=== PATIENT | male | born 1940 | race Caucasian/White ===

== ENCOUNTER 2017-06-20 13:17 | Emergency (ER) | payer MEDICARE, OTHER ==
--- NOTE | 2017-06-20 13:57 | ERPHSYRPT ---
- History of Present Illness Time Seen by Provider: 06/20/17 13:44 Source: patient Patient Subjective Stated Complaint: PT REPORTS MILD HEADACHE FOR THE LAST FEW DAYS-STATES THAT HE WENT TO WALK OUT THE DOOR WHEN THINGS STARTED TURNING BLACK- PT MADE IT TO THE COUGH ET SAT DOWN-STATED VISION CONTINUED TO TURN BLACK- DENIES LOSS OF AWARENESS-DENIES PAIN OTHER THAN HEADACHE WHICH DID NOT CHANGE- DENIES NUMBNESS OR TINLGING-DENIES CONFUSION-DENIES N/V-PT REPORTS HE TOOK HIS BLOOD SUGAR AT HOME IT WAS 182 Triage Nursing Assessment: PT PINK WARM ET DRY-AMBULATORY WITH NO DIFFICULTY- ALERT-ANSWERING ALL QUESTIONS CORRECTLY-FOLLOWING ALL COMMANDS-NO FACIAL DROOP OR SLURRED SPEECH NOTED-PUPILS REACTIVE-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 He's had a headache for 2 days. He was beginning to walk out of the door when his vision started to become dark. He sat down his vision still continued to be dark. He did not lose consciousness. His stated he was pale and sweaty. He denies nausea or shortness of breath. He denies chest pain. He took 2 Tylenol and his headache has not improved. He feels better now. His past medical history is significant for coronary artery disease, cardiac stent placement 2, hypertension, high cholesterol, diabetes, and mild anxiety. Witnessed: by family Prior Episodes: single episode today, no prior history Timing/Duration: today Precipitating Factors: none Context: sitting, standing Loss of Consciousness: no loss of consciousness Charcter of event(s): felt faint Allergies/Adverse Reactions: erythromycin base [Erythromycin Base] Allergy (Verified 06/20/17 13:32) Itching Home Medications: Aspirin 81 gm Chew [Baby Aspirin 81 mg Chew] 81 mg PO DAILY 07/24/13 [ History] Atenolol 25 mg PO DAILY 07/24/13 [History] [place]-3/Dha/Epa/Fish Oil [Fish Oil] 1 cap PO DAILY 07/24/13 [History] Simvastatin 10 mg [Zocor 10MG] 20 mg PO DAILY 07/24/13 [History] Clopidogrel Bisulfate 75 mg [PLAVIX 75 MG Tablet] 75 mg PO DAILY 06/20/17 [History] Clorazepate Dipotassium [Tranxene T-Tab] 7.5 mg PO BID 06/20/17 [History] Isosorbide Mononitrate 60 mg [Imdur 60MG] 60 mg PO DAILY 06/20/17 [History] Lisinopril 5 mg [Zestril 5 MG] 2.5 mg PO DAILY 06/20/17 [History] Metformin HCl 500 mg [Glucophage 500 MG] 500 mg PO BID 06/20/17 [History] Sertraline HCl [Zoloft] 25 mg PO BID 06/20/17 [History] Zolpidem Tartrate [Ambien] 10 mg PO HS 06/20/17 [History] Hx Tetanus, Diphtheria Vaccination/Date Given: No Hx Influenza Vaccination/Date Given: Yes Hx Pneumococcal Vaccination/Date Given: Yes Immunizations Up to Date: Yes - Past Medical History Pertinent Past Medical History: Yes Cardiac History: Coronary Artery Disease, Myocardial Infarction ([place]) Endocrine Medical History: Diabetes Type II - Past Surgical History Past Surgical History: Yes Cardiac: Cardiac Stent Musculoskeletal: Other - Social History Smoking Status: Never smoker Exposure to second hand smoke: No Drug Use: none Patient Lives Alone: No - Review of Systems Constitutional: No Fever, No Chills Eyes: No Symptoms Ears, Nose, & Throat: No Symptoms Respiratory: No Cough, No Dyspnea Cardiac: No Chest Pain, No Edema, No Syncope Abdominal/Gastrointestinal: No Abdominal Pain, No Nausea, No Vomiting, No Diarrhea Genitourinary Symptoms: No Dysuria Musculoskeletal: No Back Pain, No Neck Pain Skin: No Rash Neurological: Headache, No Dizziness, No Focal Weakness, No Sensory Changes Psychological: No Symptoms Endocrine: No Symptoms Hematologic/Lymphatic: No Symptoms Immunological/Allergic: No Symptoms All Other Systems: Reviewed and Negative Physical Exam - Nursing Vital Signs Nursing Vital Signs: Initial Vital Signs Temperature 98.5 F 06/20/17 13:23 Pulse Rate 57 L 06/20/17 13:23 Respiratory Rate 18 06/20/17 13:23 Blood Pressure 138/63 06/20/17 13:23 O2 Sat by Pulse Oximetry 100 06/20/17 13:23 Pain Scale Pain Intensity 0 - Adonis Coma Scale Best Eye Response ([place]): (4) open spontaneously Best Verbal Response (Adonis): (5) oriented Best Motor Response (Adonis): (6) obeys commands Adonis Total: 15 - Physical Exam General Appearance: no apparent distress, alert Eye Exam: bilateral eye: normal inspection Ears, Nose, Throat Exam: normal ENT inspection, pharynx normal, moist mucous membranes Neck Exam: normal inspection, non-tender, supple, full range of motion Respiratory: normal breath sounds, lungs clear, No chest tenderness, No respiratory distress Cardiovascular: regular rate/rhythm, capillary refill <2 sec, No murmur, No pulse deficit Gastrointestinal: soft, No tenderness, No distention, No mass Rectal Exam: not done Back Exam: normal inspection, normal range of motion, No CVA tenderness, No vertebral tenderness Extremity Exam: normal inspection, normal range of motion, pelvis stable, No tenderness Mental Status: alert, oriented x 3, 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 Exam: normal speech, PERRL, No facial droop Coordination/Gait: normal finger to nose Motor/Sensory: no motor deficit, no sensory deficit, no pronator drift Skin Exam: normal color, warm, dry, No rash SpO2 Interpretation: normal SpO2: 100 Oxygen Delivery: Room Air - Course EKG Interpreted by Me: RATE, Sinus [place], Left [place] Deviation, NORMAL INTERVALS , NORMAL QRS, NORMAL ST-T - Radiology Exams Chest X-ray Interpretation: Interpreted by me, Negative (no change comp to CXR .) - CT Exams Head CT Interpretation: Negative, Tele-radiologist Report, No/Intracranial Hemorrhag (Per Dr Vickers) Ordered Tests: Active Orders 24 hr Category Date Time Status Agency Owner STAT Care 06/20/17 13:37 Active EKG-ER Only STAT Care 06/20/17 13:34 Active IV Insertion STAT Care 06/20/17 13:34 Active CHEST 2 VIEWS (PA AND LAT) Stat Exams 06/20/17 13:59 Taken HEAD WITHOUT CONTRAST [CT] Stat Exams 06/20/17 13:58 Taken CBC W DIFF Stat Lab 06/20/17 14:00 Completed CMP Stat Lab 06/20/17 14:00 Completed TROPONIN Q3H Lab 06/20/17 14:00 Completed TROPONIN Q3H Lab 06/20/17 17:00 Ordered TROPONIN Q3H Lab 06/20/17 20:00 Ordered TROPONIN Q3H Lab 06/20/17 23:00 Ordered TROPONIN Q3H Lab 06/21/17 02:00 Ordered UA W/RFX UR CULTURE Stat Lab 06/20/17 15:00 Completed Lab/Rad Data: Laboratory Result Diagrams 06/20/17 14:00 06/20/17 14:00 Laboratory Results 06/20/17 06/20/17 06/20/17 Range/Units 15:00 14:00 14:00 WBC (4.0-10.5) K/mm3 RBC (4.1-5.6) M/mm3 Hgb (12.5-18.0) gm/dl Hct (42-50) % MCV (78-100) fl MCH (26-32) pg MCHC (32-36) g/dl RDW (11.5-14.0) % Plt Count (150-450) K/mm3 MPV (6-9.5) fl Gran % (36.0-66.0) % Lymphocytes % (24.0-44.0) % Monocytes % (0.0-12.0) % Eosinophils % (0.00-5.0) % Basophils % (0.0-0.4) % Basophils # (0-0.4) Sodium 140 (136-145) mEq/L Potassium 3.8 (3.5-5.1) mEq/L Chloride 104 (98-107) mEq/L Carbon Dioxide 24.6 (21-32) mEq/L Anion Gap 14.9 (5-15) MEQ/L BUN 17 (9-20) mg/dL Creatinine 1.16 (0.55-1.30) mg/dl Estimated GFR > 60 ML/MIN Glucose 125 H (70-110) MG/DL Calcium 9.3 (8.5-10.1) mg/dL Total Bilirubin 0.90 (0.2-1.0) mg/dL AST 19 (15-37) U/L ALT 18 (12-78) U/L Alkaline Phosphatase 49 (46-116) U/L Troponin I < 0.017 (0.000-0.056) ng/ml Serum Total Protein 7.7 (6.4-8.2) gm/dL Albumin 4.3 (3.4-5.0) g/dL Ur Collection Type VOID Urine Color YELLOW (YELLOW) Urine Appearance CLEAR (CLEAR) Urine pH 6.0 (5-6) Ur Specific [place] 1.010 (1.005-1.025) Urine Protein NEGATIVE (Negative) Urine Ketones NEGATIVE (NEGATIVE) Urine Blood NEGATIVE (0-5) Yousuf/ul Urine Nitrite NEGATIVE (NEGATIVE) Urine Bilirubin NEGATIVE (NEGATIVE) Urine Urobilinogen 1 (0-1) mg/dL Ur Leukocyte Esterase NEGATIVE (NEGATIVE) Urine Culture Reflexed NO (NO) Urine Glucose NEGATIVE (NEGATIVE) mg/dL Specimen Received 06/20/17 1500 06/20/17 Range/Units 14:00 WBC 6.8 (4.0-10.5) K/mm3 RBC 4.15 (4.1-5.6) M/mm3 Hgb 12.3 L (12.5-18.0) gm/dl Hct 35.8 L (42-50) % MCV 86.3 (78-100) fl MCH 29.6 (26-32) pg MCHC 34.4 (32-36) g/dl RDW 13.3 (11.5-14.0) % Plt Count 187 (150-450) K/mm3 MPV 10.2 H (6-9.5) fl Gran % 66.3 H (36.0-66.0) % Lymphocytes % 24.4 (24.0-44.0) % Monocytes % 7.0 (0.0-12.0) % Eosinophils % 2.2 (0.00-5.0) % Basophils % 0.1 (0.0-0.4) % Basophils # 0.01 (0-0.4) Sodium (136-145) mEq/L Potassium (3.5-5.1) mEq/L Chloride (98-107) mEq/L Carbon Dioxide (21-32) mEq/L Anion Gap (5-15) MEQ/L BUN (9-20) mg/dL Creatinine (0.55-1.30) mg/dl Estimated GFR ML/MIN Glucose (70-110) MG/DL Calcium (8.5-10.1) mg/dL Total Bilirubin (0.2-1.0) mg/dL AST (15-37) U/L ALT (12-78) U/L Alkaline Phosphatase (46-116) U/L Troponin I (0.000-0.056) ng/ml Serum Total Protein (6.4-8.2) gm/dL Albumin (3.4-5.0) g/dL Ur Collection Type Urine Color (YELLOW) Urine Appearance (CLEAR) Urine pH (5-6) Ur Specific [place] (1.005-1.025) Urine Protein (Negative) Urine Ketones (NEGATIVE) Urine Blood (0-5) Yousuf/ul Urine Nitrite (NEGATIVE) Urine Bilirubin (NEGATIVE) Urine Urobilinogen (0-1) mg/dL Ur Leukocyte Esterase (NEGATIVE) Urine Culture Reflexed (NO) Urine Glucose (NEGATIVE) mg/dL Specimen Received - Progress Progress: improved Counseled pt/family regarding: lab results, diagnosis, need for follow-up, rad results - Departure Time of Disposition: 15:43 Departure Disposition: Home Clinical Impression: Near syncope Condition: Stable Critical Care Time: No Referrals: NATO BROWN [Primary Care Provider] - Additional Instructions: You had an episode of near syncope today. Your head CT was normal. Her chest x -ray was normal. Your laboratory results were all normal as well. Rest today. Drink plenty of fluid. Follow-up with your local doctor on Thursday or Thursday.
[2017-06-20 14:09] LABS: BASOPHIL % 0.1 % (0.0-0.4); Eosinophil % 2.2 % (0.00-5.0); Granulocytes % 66.3 % (36.0-66.0); Lymphocytes % 24.4 % (24.0-44.0); Mean Cell Volume 86.3 fl (78-100); Mean Corpuscular Hemoglobin 29.6 pg (26-32); Mean Platelet Volume 10.2 fl (6-9.5); Platelet Count 187 K/mm3 (150-450); Red Blood Count 4.15 M/mm3 (4.1-5.6); Red Cell Distribution Width 13.3 % (11.5-14.0); White Blood Count 6.8 K/mm3 (4.0-10.5)
[2017-06-20 14:26] LABS: ALBUMIN 4.3 g/dL (3.4-5.0); ALKALINE PHOSPHATASE 49 U/L (46-116); ANION GAP 14.9 MEQ/L (5-15); BLOOD UREA NITROGEN 17 mg/dL (9-20); CHLORIDE 104 mEq/L (98-107); Carbon Dioxide 24.6 mEq/L (21-32); Glucose 125 MG/DL (70-110); Potassium 3.8 mEq/L (3.5-5.1); SGOT/AST 19 U/L (15-37); SGPT/ALT 18 U/L (12-78); SODIUM 140 mEq/L (136-145); Total Protein 7.7 gm/dL (6.4-8.2)
[2017-06-20 15:03] VITALS: BP 143/61; PULSE 54
[2017-06-20 15:16] VITALS: O2SAT 100
[2017-06-20 15:19] LABS: ADD URINE CULTURE? NO (NO); Bilirubin NEGATIVE (NEGATIVE); Blood NEGATIVE Ery/ul (0-5); COMPLETE URINE MICROSCOPIC? NO; Collection Type VOID; Glucose NEGATIVE (NEGATIVE); Leukocyte Esterase NEGATIVE (NEGATIVE)
--- NOTE | 2017-06-20 21:20 | XRAY ---
Indication: Headache. Syncope. Multiple contiguous axial images obtained through the head without contrast. Comparison: September 12, 2010. There is age-appropriate global atrophy and minimal periventricular degenerative micro-ischemia. No acute intracranial hemorrhage, abnormal extra-axial fluid collection, or mass effect. Fourth ventricle is midline without hydrocephalus. Bony calvarium intact. Visualized paranasal sinuses and mastoid air cells clear. Impression: Nonacute senile brain. Comment: Preliminary interpretation was made by [facility]. No discrepancy. CTDI 68.65
--- NOTE | 2017-06-20 21:20 | XRAY ---
Indication: Headache and syncope. Comparison: February 12, 2016. PA/lateral chest again demonstrates normal heart and lungs with incidental calcified granulomas. Bony thorax intact. No new/acute findings.
== END 2017-06-20 15:48 | disposition home or self-care (01) ==
LOC: ED 13:17
DX: R55 Syncope and collapse (principal); R51 Headache; I25.10 Atherosclerotic heart disease of native coronary artery without angina pectoris; Z98.61 Coronary angioplasty status; I10 Essential (primary) hypertension; E78.00 Pure hypercholesterolemia, unspecified; E11.9 Type 2 diabetes mellitus without complications; F41.9 Anxiety disorder, unspecified; Z79.899 Other long term (current) drug therapy; Z79.84 Long term (current) use of oral hypoglycemic drugs
CPT/HCPCS: 36000; 36415; 70450; 71020; 80053; 81002; 84484; 85025; 93005; 93041; 99284